=== PATIENT | male | born 1955 | race Caucasian/White ===

== ENCOUNTER 2019-06-01 10:06 | Outpatient (CLI) | payer OTHER, SELFPAY ==
--- NOTE | ~2019-06-01 | XR_ITS ---
EXAMINATION:XR cervical spine 4-5V DATE: 06/01/2019 10:50 INDICATION: Neck pain TECHNIQUE: AP, lateral, bilateral oblique, lateral swimmers and odontoid views of the cervical spine are provided. COMPARISON: None FINDINGS: Alignment is normal. The odontoid is intact. No fracture is identified. The vertebral body heights are normal. There is moderate loss of intervertebral disc space height from C3-4 through C7-T 1. Small degenerative osteophytes project from the anterior endplates of multiple vertebral bodies. T here is moderate to severe multilevel facet and uncovertebral joint osteoarthritis. Mild neural dianna inal stenosis is noted in the lower cervical spine. Prevertebral soft tissues are normal. IMPRESSION: 1. Moderate cervical spondylosis without acute findings. Reviewed, dictated and finalized at location A. E MILL HAND
--- NOTE | ~2019-06-01 | XR_ITS ---
EXAMINATION: XR thoracic spine 3V DATE: 06/01/2019 10:50 INDICATION: Dorsalis TECHNIQUE: AP, lateral and lateral swimmer's views of the thoracic spine were obtained. COMPARISON: None. FINDINGS: There is no fracture. Mild loss of intervertebral disc space height is seen at multiple lev els throughout the thoracic spine. The vertebral body heights and alignment are normal. Small degener ative osteophytes project from the anterior endplates of multiple vertebral bodies. IMPRESSION: 1. Moderate thoracic spondylosis without acute findings. Reviewed, dictated and finalized at location A. HOUSE LABORER
--- NOTE | ~2019-06-01 | XR_ITS ---
EXAMINATION: XR lumbar spine 2-3V DATE: 06/01/2019 10:50 INDICATION: Dorsalgia, unspecified TECHNIQUE: Anteroposterior and lateral views of the lumbar spine, and cone-down lateral view of the l umbosacral junction were obtained. COMPARISON: None. FINDINGS: There is no fracture. There is severe loss of intervertebral disc space height at L1-2. The re are 4 mm of retrolisthesis of L5 on S1. Small degenerative osteophytes project from the anterior e ndplates of multiple vertebral bodies. The bowel gas pattern is normal. There is moderate multilevel facet osteoarthritis. IMPRESSION: 1. Lumbar spondylosis, worst at L1-2. Reviewed, dictated and finalized at location A. ICER
== END 2019-06-01 10:07 | disposition home or self-care (01) ==
LOC: CHSLAB 10:09 → CHSIMG 10:29
PROVIDERS: PCP Nurse Practitioner Family; Visit Provider Nurse Practitioner Family
DX: M54.9 Dorsalgia, unspecified (principal); M54.12 Radiculopathy, cervical region
CPT/HCPCS: 72050; 72072; 72100

== ENCOUNTER 2019-12-05 16:53 | Emergency (ER) | payer OTHER, SELFPAY ==
--- NOTE | ~2019-12-05 | XR_ITS ---
XR hip RT 2V w AP pelvis DATE: 12/05/2019 17:46 INDICATION: Right hip injury. Foreshortening and deformity. TECHNIQUE: AP pelvis. AP, lateral and crosstable lateral views of right hip COMPARISON: 12/05/2019 right femur FINDINGS: No pelvic fracture. The pubic symphysis and sacroiliac joints are intact. There is an intertrochanteric fracture of the right femur extending into the proximal shaft, with the re is angulation. IMPRESSION: Right intertrochanteric hip fracture Reviewed, dictated and finalized at location A.
--- NOTE | ~2019-12-05 | XR_ITS ---
XR femur RT min 2V DATE: 12/05/2019 17:47 INDICATION: Foreshortening and deformity right femur; hand injury TECHNIQUE: AP and lateral views COMPARISON: None FINDINGS: There is a trochanteric fracture of the right hip extending into the proximal shaft. There is varus angulation. IMPRESSION: Right intertrochanteric hip fracture, extending into proximal femoral shaft Reviewed, dictated and finalized at location A. IMPRESSION: Right intertrochanteric hip fracture, extending into proximal femor al shaft
[2019-12-05 16:53] VITALS: BP 91/66; PULSE 70; RESP 20; TEMP 35.9; O2SAT 98
[2019-12-05] MEDS: SODIUM CHLORIDE 0.9% IV 1,000 ML 999 ML IV CONT (16:53)
[2019-12-05 17:56] LABS: Hematocrit 37.1 % (40.0-54.0); Hemoglobin 12.5 g/dL (14.0-18.0); Mean Corpuscular HGB Conc 33.7 g/dL (32.0-36.0); Mean Corpuscular Hemoglobin 30.8 pg (27.0-31.0); Mean Corpuscular Volume 91.4 fL (78.0-102.0); Mean Platelet Volume 8.6 fl (8.7-11.0); Platelet Count Result 244 K/mm3 (150-420); Red Blood Count 4.06 M/mm3 (4.70-6.10); Red Cell Distribution Width 12.2 % (11.6-14.4); White Blood Count 12.8 K/mm3 (4.8-10.8)
[2019-12-05] MEDS: MORPHINE SULFATE 4 MG/ML INJ IV PUSH (18:05)
--- NOTE | 2019-12-05 18:07 | PC.NURSE ---
call to [facility] for transfer
[2019-12-05 18:10] LABS: Partial Thromboplastin Time 27.9 SEC (22.3-31.6); Prothrombin Time 10.6 Seconds (9.64-11.0)
[2019-12-05 18:11] LABS: Alanine Aminotransferase 13 U/L (16-63); Albumin Level 3.3 g/dL (3.4-5.0); Alkaline Phosphatase 74 U/L (46-116); Anion Gap 8 mmol/L (8-16); Aspartate Amino Transferase 18 U/L (15-37); Bilirubin,Total 0.5 mg/dL (0.00-1.00); Blood Urea Nitrogen 8 mg/dL (7-18); Carbon Dioxide 26 mmol/L (21-32); Chloride 97 mmol/L (98-108); Estimated CRCL calculation 69 ml/min; Estimated Glomerular Filt Rate > 60; Glucose 115 mg/dL (70-99); Osmolality Calculated 271 mOsm/kg (285-295); Sodium 131 mmol/L (136-145); Total Protein 6.3 g/dL (6.4-8.2)
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
[2019-12-05 18:32] VITALS: BP 122/80; PULSE 65; RESP 20; TEMP 37.1; O2SAT 99
--- NOTE | 2019-12-05 18:40 | PC.NURSE ---
[facility] called for transfer. awaiting arrival.
[2019-12-05] MEDS: HYDROmorphone HCL 2 MG/ML VIAL IV PUSH (19:10)
--- NOTE | 2019-12-05 19:16 | PC.NURSE ---
report to ems staff from laquita simpson loaded to ems cot. tolerated well, pedal pulse marked for location. remains present and strong before and after moving to cot.
== END 2019-12-05 19:14 | disposition short-term general hospital (02) ==
PROVIDERS: Emergency Provider Emergency Medicine
DX: S72.91XA Unspecified fracture of right femur, initial encounter for closed fracture (principal); V19.9XXA Pedal cyclist (driver) (passenger) injured in unspecified traffic accident, initial encounter
CPT/HCPCS: 36415; 73502; 73552; 80053; 85027; 85610; 85730; 86850; 86900; 86901; 96361; 96374; 96375; 99285; J1170; J2270; J7030

== ENCOUNTER 2020-01-12 13:00 | Outpatient (RCR) | payer OTHER, SELFPAY ==
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
--- NOTE | 2020-03-01 16:08 | PTOPEVAL ---
Thank you for referring Bryon Ibarra to [facility].? The patient is scheduled to be seen for therapy? ____x/week for ___ weeks. Please review, sign, date and return this plan of care VANDANA. I agree with and certify that the following plan of care is medically necessary. Referring Physician Date Admitting Provider: Attending Provider: Philip Baeza, Referring Provider: *PT Outpatient Evaluation Start: 01/12/20 13:05 Freq: Status: Active Protocol: Document 03/01/20 15:00 [facility] (Rec: 03/01/20 16:07 [facility] [id number]) Therapy Assessment Status Assessment Status Assessment Status Re-evaluation Outpatient Past Medical History Musculoskeletal History Hx Back Injury Yes Hx Back Pain Yes Hx Orthopedic Surgery Yes: carpal tunnel right HEENT History Hx Tonsillectomy Yes Evaluation Information Problem Diagnosis R femur fracture Subjective Information patient reports he feels ' Query Text:As Reported By Patient/ better but reports he is Family still weak. he reports his back is more pain ful the the hip, but reports his hip is what affects his walking and activity performance. he reports he would like to continue therapy. he reports he is worried he will not be able to get back to walking without an AD. Pain Assessment Timing of Pain Assessment Timing of Pain Assessment Assessment Pain Scale Pain Scale Used Numeric (1 - 10) Self Report Pain Assessment Lower Back Reported Pain Level 8 Right Leg(s) Reported Pain Level 6 Pain Score Pain Score 8,6: Self Report Interventions Used Interventions Used By Clinicians Activity or ADL's,Education, Exercise Lower Extremity Range of Motion Hip Range of Motion Right Hip Flexion Range of Motion - Active 120 Hip Flexion Range of Motion - Passive 120 Hip Abduction Range of Motion - Active 30 Hip Medial Rotation - Active 30 Hip Lateral Rotation - Active 45 Cervical and Lumbar Muscle Testing Lumbar Strength Upper Abdominal Strength 3-Fair- Lower Abdominal Strength 2 Poor Lower Extremity Muscle Strength Testing Hip Strength Right Hip Flexion Strength 3- Fair - Hip Extension Strength 3- Fair - Hip Abduction Strength 3- Fair - Left Hip Flexion Strength 4 Good Hip Extension Strength 4- Good - Hip Abduction Strength 4- Good - Knee Strength Right Knee Flexion Strength
--- NOTE | 2020-03-10 15:51 | PCPTNOTE ---
patient called and cancelled appt today due to daughter testing positive for covid. ROSEMARY
== END 2020-04-27 17:04 | disposition home or self-care (01) ==
LOC: CHSPT 13:00
PROVIDERS: Visit Provider Orthopaedic Surgery Orthopaedic Trauma
DX: S72.21XA Displaced subtrochanteric fracture of right femur, initial encounter for closed fracture (principal)
CPT/HCPCS: 97014; 97110; 97116; 97161; 97530; G0283

== ENCOUNTER 2020-01-20 07:36 | Outpatient (CLI) | payer OTHER, SELFPAY | END 2020-01-20 07:37 | disposition home or self-care (01) | LOC: CHSIMG 07:38 | PROVIDERS: PCP Nurse Practitioner Family; Visit Provider Nurse Practitioner Family | DX: Z53.8 Procedure and treatment not carried out for other reasons (principal) | CPT/HCPCS: 99199 ==

== ENCOUNTER 2020-01-27 10:24 | Outpatient (CLI) | payer OTHER, SELFPAY ==
--- NOTE | ~2020-01-27 | MR_ITS ---
EXAMINATION: MR lumbar spine wo con EXAM DATE: 01/27/2020 11:54 INDICATION: Mid and low back pain. Spondylosis. TECHNIQUE: Multi-sequential, multiplanar MR images of the lumbar spine were obtained without contrast . Sagittal T1, T2, T2 fat saturation images. Axial T2 weighted images. There is no prior study for comparison. FINDINGS: There is moderate to severe disc disease at L1-2 with 3 mm retrolisthesis. Mild disc diseas e at the other lumbar levels. The vertebral bodies are otherwise aligned. The conus medullaris term inates at the L1 level and has normal signal intensity and morphology. There are no suspicious marro w signal abnormalities. Paraspinal soft tissue is unremarkable. Level by level evaluation: T12-L1: Disc does not extend beyond the endplate margin. Facet arthropathy: None. Neural foraminal stenosis: No stenosis. Central canal stenosis: No stenosis. L1-L2: There is a moderate diffuse disc bulge. Facet arthropathy: Mild. Neural foraminal stenosis: Moderate bilateral. Central canal stenosis: Mild to moderate. L2-L3: There is a mild diffuse disc bulge. Facet arthropathy: Mild. Neural foraminal stenosis: Mild left. Central canal stenosis: Mild. L3-L4: There is a mild diffuse disc bulge. Facet arthropathy: Mild. Neural foraminal stenosis: Mild bilateral. Central canal stenosis: Mild. L4-L5: There is a mild diffuse disc bulge. Facet arthropathy: Mild to moderate. Neural foraminal stenosis: Mild to moderate left, mild right. Central canal stenosis: Mild. L5-S1: There is a mild diffuse disc bulge. Facet arthropathy: Mild. Neural foraminal stenosis: Mild to moderate bilateral. Central canal stenosis: Mild. IMPRESSION: 1. L1-2 moderate to severe disc disease, moderate bilateral neural foraminal stenosis. 2. Lesser spondylosis at other levels. Reviewed, dictated and finalized at location B. IMPRESSION: 1. L1-2 moderate to severe disc disease, moderate bilateral neural foraminal s tenosis. 2. Lesser spondylosis at other levels.
--- NOTE | ~2020-01-27 | MR_ITS ---
EXAMINATION: MR thoracic spine wo con EXAM DATE: 01/27/2020 11:54 INDICATION: Mid back pain. TECHNIQUE: Multi-sequential, multiplanar MR images of the thoracic spine were obtained without contra st. Sagittal T1, T2, T2 fat saturation, axial T2 weighted images reviewed. There is no prior study for comparison. FINDINGS: The spinal cord signal intensity and intrinsic morphology is normal. The vertebral bodies a re aligned in the AP dimension. Vertebral body and disc heights are well-maintained. Thoracic central canal, neural foramen widely patent. Paraspinal soft tissue is unremarkable. Overall mild thoracic f acet arthropathy. IMPRESSION: Mild thoracic facet arthropathy. Reviewed, dictated and finalized at location B.
--- NOTE | ~2020-01-27 | MR_ITS ---
EXAMINATION: MR cervical spine wo con EXAM DATE: 01/27/2020 11:54 INDICATION: Cervical spondylosis. Neck pain, hand numbness. TECHNIQUE: Multi-sequential, multiplanar MR images of the cervical spine were obtained without contra st. Axial T2, axial T2 MERGE sequence. Sagittal T1, T2, T2 fat saturation images also obtained. Th ere is no prior study for comparison. FINDINGS: Study is limited due to patient motion. There is congenitally narrow cervical spinal canal . Moderate to severe loss of the disc height at C5-6, moderate at C3-4, C4-5 and C6-7. The vertebral bodies are aligned in the AP dimension. The spinal cord signal intensity and intrinsic morphology is normal. Cervicomedullary junction is normal in appearance. There are no suspicious marrow signal abno rmalities. Paraspinal soft tissue is unremarkable. Level by level evaluation: C2-C3: Disc does not extend beyond the endplate margin. Uncovertebral joint arthropathy: None. Facet joint arthropathy: Mild to moderate right, mild left. Neural foraminal stenosis: No stenosis. Central canal stenosis: No stenosis. C3-C4: There is a mild diffuse disc bulge. Uncovertebral joint arthropathy: Mild to moderate bilateral. Facet joint arthropathy: Mild bilateral. Neural foraminal stenosis: Moderate right, mild to moderate left. Central canal stenosis: Mild. C4-C5: There is a mild to moderate diffuse disc bulge. Uncovertebral joint arthropathy: Moderate bilateral. Facet joint arthropathy: Mild to moderate bilateral. Neural foraminal stenosis: Severe bilateral. Central canal stenosis: Moderate . Central canal measures 5 mm in mid sagittal AP diameter. Cord is being flattened but no edema, no acute compression. C5-C6: There is a mild diffuse disc bulge. Uncovertebral joint arthropathy: Severe left, moderate to severe right. Facet joint arthropathy: Mild to moderate bilateral. Neural foraminal stenosis: Severe left, moderate to severe right. Central canal stenosis: Mild to moderate . Central canal measures 6-7 mm in mid sagittal AP diameter . C6-C7: There is a mild diffuse disc bulge. Uncovertebral joint arthropathy: Severe left, moderate right. Facet joint arthropathy: Moderate left, mild right. Neural foraminal stenosis: Severe left, mild to moderate right. Central canal stenosis: Mild. C7-T1: There is a minimal diffuse disc bulge. Uncovertebral joint arthropathy: Mild bilateral. Facet joint arthropathy: Moderate left, mild right. Neural foraminal stenosis: Mild to moderate left, mild right. Central canal stenosis: No stenosis. IMPRESSION: 1. Advanced cervical spondylosis superimposed on congenitally narrow spinal canal. 2. Chronic cord compression at C4-5 with canal only measuring 5 mm. No cord edema. Reviewed, dictated and finalized at location B. IMPRESSION: 1. Advanced cervical spondylosis superimposed on congenitally narrow spinal ca nal. 2. Chronic cord compression at C4-5 with canal only measuring 5 mm. No cord ed lashanda.
== END 2020-01-27 10:25 | disposition home or self-care (01) ==
LOC: CHSIMG 10:25
PROVIDERS: PCP Nurse Practitioner Family; Visit Provider Nurse Practitioner Family
DX: M47.814 Spondylosis without myelopathy or radiculopathy, thoracic region (principal); M47.812 Spondylosis without myelopathy or radiculopathy, cervical region; M43.10 Spondylolisthesis, site unspecified; M47.816 Spondylosis without myelopathy or radiculopathy, lumbar region; G62.9 Polyneuropathy, unspecified; M54.12 Radiculopathy, cervical region
CPT/HCPCS: 72141; 72146; 72148

== ENCOUNTER 2020-04-12 17:09 | Outpatient (RCR) | payer OTHER, SELFPAY | END 2020-07-11 23:59 | disposition home or self-care (01) | LOC: CHSPT 17:09 | PROVIDERS: Visit Provider Orthopaedic Surgery Orthopaedic Trauma | DX: S72.21XD Displaced subtrochanteric fracture of right femur, subsequent encounter for closed fracture with routine healing (principal) | CPT/HCPCS: 97110; 97530 ==

== ENCOUNTER 2020-06-28 16:55 | Outpatient (CLI) | payer OTHER, SELFPAY ==
--- NOTE | ~2020-06-28 | XR_ITS ---
EXAMINATION: XR chest 2V 06/28/2020 17:43 INDICATION: Smoker. Dyspnea. PROCEDURE: 2 view chest COMPARISON: No prior studies for comparison. FINDINGS: The lungs are clear. The cardiomediastinal silhouette is within normal limits. There are no pleural effusions. There is no pneumothorax suspected. The lungs are hyperinflated which is consistent with, but not diagnostic of chronic obstructive pulmo nary disease. IMPRESSION: 1: NO ACUTE CARDIOPULMONARY DISEASE. Reviewed, dictated and finalized at location A. TRY INSEMINATOR
--- NOTE | 2020-06-28 16:58 | ECG_ITS ---
Measurements Intervals [place] Rate: 67 P: 70 UT: 196 QRS: 84 QRSD: 96 T: 77 QT: 366 QTc: 387 Interpretive Statements SINUS RHYTHM INCOMPLETE RIGHT BUNDLE BRANCH BLOCK PEAKED T WAVES- CONSIDER HYPERKALEMIA OR ISCHEMIA ABNORMAL ECG Electronically Signed On 06-28-2020 20:16:19 SHEET METAL PATTERN CUTTER by Faisal Tobar D.O.
[2020-06-28 17:16] LABS: Hematocrit 39.7 % (40.0-54.0); Hemoglobin 13.3 g/dL (14.0-18.0); Mean Corpuscular HGB Conc 33.5 g/dL (32.0-36.0); Mean Corpuscular Hemoglobin 31.1 pg (27.0-31.0); Mean Corpuscular Volume 92.8 fL (78.0-102.0); Mean Platelet Volume 8.6 fl (8.7-11.0); Platelet Count Result 238 K/mm3 (150-420); Red Blood Count 4.28 M/mm3 (4.70-6.10); Red Cell Distribution Width 12.5 % (11.6-14.4)
[2020-06-28 17:19] LABS: Add Urine Microscopic? NO; Appearance Urine Clear (Clear); Bilirubin Urine Negative (Negative); Blood Urine Negative (Negative); Color Urine Yellow (Yellow); Glucose Urine UA Negative (Negative); Ketones Urine Negative (Negative); Leukocyte Esterase Ur Negative (Negative); Nitrate Urine Negative (Negative); Protein Urine Negative (Negative); Specific Grav Ur 1.015 (1.010-1.020)
[2020-06-28 17:30] LABS: Prothrombin Time 10.4 Seconds (9.50-12.10)
[2020-06-28 17:49] LABS: Albumin Level 3.8 g/dL (3.4-5.0); Alkaline Phosphatase 140 U/L (46-116); Anion Gap 7 mmol/L (8-16); Aspartate Amino Transferase 16 U/L (15-37); Bilirubin,Total 0.8 mg/dL (0.00-1.00); Blood Urea Nitrogen 12 mg/dL (7-18); Calcium 8.6 mg/dL (8.5-10.1); Carbon Dioxide 28 mmol/L (21-32); Chloride 97 mmol/L (98-108); Estimated Glomerular Filt Rate > 60; Glucose 102 mg/dL (70-99); Osmolality Calculated 273 mOsm/kg (285-295); Potassium 4.3 mmol/L (3.5-5.1); Sodium 132 mmol/L (136-145); Total Protein 7.4 g/dL (6.4-8.2)
[2020-06-28 17:58] LABS: Alanine Aminotransferase 19 U/L (16-63)
== END 2020-06-28 16:56 | disposition home or self-care (01) ==
LOC: CHSLAB 16:58
PROVIDERS: PCP Family Medicine; Visit Provider Family Medicine
DX: Z01.818 Encounter for other preprocedural examination (principal)
CPT/HCPCS: 36415; 71046; 80053; 81003; 85027; 85610; 87081; 93005

== ENCOUNTER 2020-07-11 07:58 | Outpatient (CLI) | payer OTHER, SELFPAY | END 2020-07-11 07:59 | disposition home or self-care (01) | LOC: CHSIMG 08:00 | PROVIDERS: PCP Family Medicine; Visit Provider Family Medicine | DX: Z53.8 Procedure and treatment not carried out for other reasons (principal) | CPT/HCPCS: 99199; J2785 ==

== ENCOUNTER 2020-07-18 07:59 | Outpatient (CLI) | payer OTHER, SELFPAY ==
--- NOTE | 2020-07-18 09:38 | EST_ITS ---
Patient Info Name: Bryon Ibarra Age: 64 years : 1955 Gender: Male Ht: 73 in Wt: 164 lbs BSA: 1.95 m2 HR: 72 bpm BP: 156 / 83 mmHg Technical Quality: Excellent Exam Date: 07/18/2020 8:55 AM Exam Location: [facility] Patient Status: Outpatient Admit Date: 07/18/2020 Staff Ordering Physician: Earl Kruse DO Attending Provider: Earl Kruse DO Exercise Technologist: Mara Melara, DANITZA Exercise Physician: Karla Cloud CEP Exam Type: CA stress walter w NM Study Info Indications AbnormalEKG - A nuclear stress test was performed. History/Risk Factors Tobacco Use: Current - Every Day If Any Current, Tobacco Type: Cigarettes If Current - Every Day \T\ Cigarettes, Amount: Heavy Tobacco Use (>=10/day) History/Risk Factors Smoker. Summary 1. 1. Negative lexiscan stress test for ischemic ST changes by ECG criteria. 2. 2. Baseline hypertension. 3. 3. Nuclear scan to follow and will be reported separately. Please correlate with it. Protocol: LEXISCAN Stress ECG Details Stage: REST Duration (min): 1 min : 2 sec HR (bpm): 73 SBP (mmHg): 156 DBP (mmHg): 83 Stage: REST Duration (min): 6 min : 0 sec HR (bpm): 75 SBP (mmHg): 156 DBP (mmHg): 83 Stage: STAGE 1 Duration (min): 0 min : 10 sec HR (bpm): 75 SBP (mmHg): 156 DBP (mmHg): 83 Stage: RECOVERY Duration (min): 0 min : 49 sec HR (bpm): 107 SBP (mmHg): 156 DBP (mmHg): 83 Stage: RECOVERY Duration (min): 1 min : 49 sec HR (bpm): 101 SBP (mmHg): 150 DBP (mmHg): 81 Stage: RECOVERY Duration (min): 2 min : 49 sec HR (bpm): 99 SBP (mmHg): 143 DBP (mmHg): 78 Stage: RECOVERY Duration (min): 3 min : 49 sec HR (bpm): 93 SBP (mmHg): 146 DBP (mmHg): 74 Stage: RECOVERY Duration (min): 4 min : 49 sec HR (bpm): 91 SBP (mmHg): 149 DBP (mmHg): 79 Stage: RECOVERY Duration (min): 5 min : 49 sec HR (bpm): 91 SBP (mmHg): 147 DBP (mmHg): 76 Stage: RECOVERY Duration (min): 6 min : 1 sec HR (bpm): 93 SBP (mmHg): 147 DBP (mmHg): 76 Rest HR: 75 bpm Peak HR: 107 bpm Rest Sys BP: 156 mmHg Peak Sys BP: 150 mmHg Max Pred HR: 158 bpm % Max Pred HR: 68 % Target HR: 134 bpm Max RPP: 16,050 bpm*mmHg Termination Reason: Completion of Protocol Cardiac Symptoms: cough Total Time: 0 min : 10 sec Rest Ayala BP: 83 mmHg Peak Ayala BP: 81 mmHg Total Dose: 0.4 mg Resting ECG Sinus rhythm, IRBBB, delayed precordial R/S transition, borderline T wave in anterior leads. Stress ECG No ST changes. Arrhythmias None. Report Signatures
--- NOTE | 2020-07-18 11:29 | WPDCARIOSTRE ---
Nuclear Stress Test INDICATIONS Indications: Abnormal EKG, preop. PROCEDURE Procedure Performed: Myocardial Perf Spect-Multi Procedure: Patient underwent a lexiscan stress test and immediately after lexiscan injection patient was injected with 31.8 mci of cardiolyte. Multiple tomographic images were obtained. These were of good quality. No evidence of perfusion defects during stress imaging. A separate resting scan was performed after patient was injected with 10.2 mci of cardiolyte. Multiple tomographic images were obtained. These were of good quality except for resting inferior wall was suboptimal. No evidence of perfusion defects during rest imaging except inferior wall could not be adequately assessed. CONCLUSION Conclusion: 1. Normal myocardial perfusion imaging demonstrating no areas of defect during stress imaging. 2. No evidence of reversible ischemia. 3. Left ventriculogram demonstrates normal measured ejection fraction of 65%. 4. No wall motion abnormality. 5. TID score is normal at 1.0.
== END 2020-07-18 08:00 | disposition home or self-care (01) ==
LOC: CHSIMG 08:00
PROVIDERS: PCP Family Medicine; Visit Provider Family Medicine
DX: R94.31 Abnormal electrocardiogram [ECG] [EKG] (principal)
CPT/HCPCS: 78452; 93017; A9502; J2785

== ENCOUNTER 2020-07-23 14:05 | Outpatient (CLI) | payer OTHER, SELFPAY ==
[2020-07-23 14:55] LABS: SARS-CoV-2 RNA PCR Negative (Negative)
== END 2020-07-23 14:06 | disposition home or self-care (01) ==
LOC: CHSLAB 14:07
PROVIDERS: PCP Family Medicine; Visit Provider Family Medicine
DX: Z01.818 Encounter for other preprocedural examination (principal); Z20.822 Contact with and (suspected) exposure to COVID-19
CPT/HCPCS: C9803; U0003; U0005

== ENCOUNTER 2020-09-01 07:56 | Outpatient (RCR) | payer OTHER, SELFPAY ==
--- NOTE | 2020-09-01 11:22 | PTOPEVAL ---
Thank you for referring Bryon Ibarra to [facility].? The patient is scheduled to be seen for therapy? ____x/week for ___ weeks. Please review, sign, date and return this plan of care VANDANA. I agree with and certify that the following plan of care is medically necessary. Referring Physician Date Admitting Provider: Attending Provider: Earl Kruse DO Referring Provider: *PT Outpatient Evaluation Start: 09/01/20 07:59 Freq: Status: Active Protocol: Document 09/01/20 08:00 [facility] (Rec: 09/01/20 10:33 [facility] [id number]) Therapy Assessment Status Assessment Status Assessment Status Evaluation Outpatient Past Medical History Musculoskeletal History Hx Back Injury Yes Hx Back Pain Yes Hx Orthopedic Surgery Yes: carpal tunnel right HEENT History Hx Tonsillectomy Yes Evaluation Information Problem Diagnosis cervical spine fusion, lumbar stenosis Onset 08/26/20 Additional Evaluation Detail oswestry = 74% functionally declined. Subjective Information Bryon Ibarra is a pleasant 64 Query Text:As Reported By Patient/ year old man who reports Family increased cervical and lumbar pain. He is s/p cervical C4-6 fusion performed on 07/26/20. He lives at home by himself and has 1 stair to enter his home. He reports taking pain medications including meloxicam and hydrocodone. He also takes medications for nerve pain, but could not remember the name of it. He takes his pain medication every 4-6 hours and has resumed driving, but does not drive when taking hydrocodone. He has had 2 MRIs taken with results of arthritis/ degeneration in the c-spine prior to surgery. He has post surgical precautions to not rotate his C-spine or lift >15 # overhead. however, patient is not in a c collar or neck brace. patient reports he still continues to struggle with balance as he reports falling this year. Prior Level of Function Comments Additional
--- NOTE | 2020-11-15 15:32 | PTOPEVAL ---
Thank you for referring Bryon Ibarra to [facility] The patient is scheduled to be seen for therapy? ____x/week for ___ weeks. Please review, sign, date and return this plan of care VANDANA. I agree with and certify that the following plan of care is medically necessary. Referring Physician Date Admitting Provider: Attending Provider: Earl Kruse DO Referring Provider: *PT Outpatient Evaluation Start: 09/01/20 07:59 Freq: Status: Active Protocol: Document 11/15/20 14:26 [facility] (Rec: 11/15/20 15:30 [facility] [id number]) Therapy Assessment Status Assessment Status Assessment Status Discharge Outpatient Past Medical History Musculoskeletal History Hx Back Injury Yes Hx Back Pain Yes Hx Orthopedic Surgery Yes: carpal tunnel right HEENT History Hx Tonsillectomy Yes Evaluation Information Problem Diagnosis cervical spine fusion, lumbar stenosis Onset 08/26/20 Additional Evaluation Detail ndi = 78% functionally declined oswestry = 66% functionally declined Subjective Information patient reports he has felt Query Text:As Reported By Patient/ better. he reports lately he Family feels he is not progressing. he reports he is going for walks and exercising at home. he reports he is not scheduled to return to his neck surgeon for any follow ups. Pain Assessment Timing of Pain Assessment Timing of Pain Assessment Assessment Pain Scale Pain Scale Used Numeric (1 - 10) Self Report Pain Assessment Spine, Lumbar Reported Pain Level 6 Neck Reported Pain Level 7 Pain Score Pain Score 6,7: Self Report Interventions Used Interventions Used By Clinicians Electrical Stimulation, Exercise,Heat Cervical and Lumbar ROM Cervical ROM Cervical Flexion (0-60) 45 Query Text:Active in Degrees Cervical Extension (0-70) 20 Query Text:Active in Degrees Lumbar ROM Lumbar Flexion Active Knee Query Text:Hands to: Lumbar Extension (0-40) 5 Query Text:Active in Degrees Lumbar Lateral Flexion Right (0-40) 10 Query Text:Active in Degrees Lumbar Lateral Flexion Left (0-40) 10 Query Text:Active in Degrees Lower Extremity Muscle Strength Testing Hip Strength Right Hip Flexion Strength 3- Fair - Left Hip Flexion Strength 3+ Fair + Knee Strength Right Kne
== END 2020-11-15 15:39 | disposition home or self-care (01) ==
LOC: CHSPT 07:56
PROVIDERS: PCP Family Medicine; Visit Provider Family Medicine
DX: G95.9 Disease of spinal cord, unspecified (principal)
CPT/HCPCS: 97014; 97110; 97140; 97162; 97530; G0283

== ENCOUNTER 2020-10-28 12:32 | Outpatient (CLI) | payer OTHER, SELFPAY ==
--- NOTE | ~2020-10-28 | XR_ITS ---
XR lumbar spine 2-3V DATE: 10/28/2020 12:58 INDICATION: Fall. Back pain. TECHNIQUE: AP, lateral, coned lateral lumbosacral views COMPARISON: 01/27/2020 MRI lumbar spine 06/01/2019 lumbar spine FINDINGS: Diffuse osteopenia. There is mild thoracolumbar levoscoliosis. There is severe degenerative disc disease including disc space narrowing, prominent spurring and [place] at L1-2. No fracture or bone destruction or spondylolisthesis. The lumbar and included T12 pedicles are intact . The sacroiliac joints are normal. Compression screw is noted in the proximal right femur. IMPRESSION: Levoscoliosis Diffuse osteopenia Severe degenerative disease at L1-2 Reviewed, dictated and finalized at location A.
--- NOTE | ~2020-10-28 | CT_ITS ---
EXAMINATION:CT lung screening DATE: 10/28/2020 12:51 INDICATION: Personal history of tobacco dependence. Current smoker with 25 pack year history. TECHNIQUE: Computed tomography (CT) of the chest was performed without intravenous contrast. Automate d exposure control and iterative reconstruction technique were employed. The dose-length product (DLP ) was 69.39 mGy-cm. COMPARISON: None. FINDINGS: There is mild emphysema. There is mild bronchiectasis in right upper lobe. There is mild mu cous plugging in the upper lobes. There is a 2 mm nodule in right upper lobe. Calcified bilateral michelle g nodules are consistent with old granulomatous disease. No pleural effusion. The heart size is myron l. There are coronary artery calcifications. No pericardial effusion. There is severe lumbar spondylo sis. IMPRESSION: 1. Lung-RADS category 2: Benign appearance or behavior. Continue annual screening with noncontrast lo w-dose chest CT in 12 months. Reviewed, dictated and finalized at location A. IMPRESSION: 1. Lung-RADS category 2: Benign appearance or behavior. Continue annual screeni ng with noncontrast low-dose chest CT in 12 months.
--- NOTE | ~2020-10-28 | XR_ITS ---
XR_CERV2-3V_CR DATE: 10/28/2020 12:58 INDICATION: Fall. Right neck pain TECHNIQUE: AP, open-mouth, lateral views COMPARISON: June 09, 2019 cervical spine FINDINGS: There is interval anterior and interbody spinal fusion at C4-C6 since June 09, 2019. C1 and C2 are normally aligned and the odontoid process is intact. No fracture or dislocation or lock ed facet or prevertebral soft tissue swelling. There is mild degenerative disc disease at C2-3, moderate degenerative disc disease at C3-4 and moder ately severe degenerative disc disease at C6-7. IMPRESSION: Status post anterior and interbody spinal fusion at C4-6 since June 01, 2019 Multilevel degenerative disc disease Reviewed, dictated and finalized at Location [facility]. Reviewed, dictated and finalized at location A. IMPRESSION: Status post anterior and interbody spinal fusion at C4-6 since 2019 Multilevel degenerative disc disease
[2020-10-28 12:43] LABS: Hematocrit 41.8 % (40.0-54.0); Hemoglobin 14.5 g/dL (14.0-18.0); Mean Corpuscular HGB Conc 34.7 g/dL (32.0-36.0); Mean Corpuscular Hemoglobin 31.6 pg (27.0-31.0); Mean Corpuscular Volume 91.1 fL (78.0-102.0); Mean Platelet Volume 8.3 fl (8.7-11.0); Platelet Count Result 290 K/mm3 (150-420); Red Blood Count 4.59 M/mm3 (4.70-6.10); Red Cell Distribution Width 12.1 % (11.6-14.4); White Blood Count 6.8 K/mm3 (4.8-10.8)
[2020-10-28 14:01] LABS: Alanine Aminotransferase 19 U/L (16-63); Alkaline Phosphatase 109 U/L (46-116); Anion Gap 12 mmol/L (8-16); Aspartate Amino Transferase 19 U/L (15-37); Bilirubin,Total 1.4 mg/dL (0.00-1.00); Blood Urea Nitrogen 14 mg/dL (7-18); Carbon Dioxide 27 mmol/L (21-32); Chloride 95 mmol/L (98-108); Estimated Glomerular Filt Rate > 60; Glucose 100 mg/dL (70-99); Osmolality Calculated 278 mOsm/kg (285-295); Potassium 4.2 mmol/L (3.5-5.1); Sodium 134 mmol/L (136-145); Total Protein 6.9 g/dL (6.4-8.2)
[2020-10-28 14:29] LABS: Thyroid Stimulating Hormone Reflex 2.69 u/IU/mL (0.36-3.74)
[2020-11-01 10:40] LABS: Prealbumin 30 mg/dL (21-43)
== END 2020-10-28 12:33 | disposition home or self-care (01) ==
LOC: CHSIMG 12:35
PROVIDERS: PCP Family Medicine; Visit Provider Family Medicine
DX: Z12.2 Encounter for screening for malignant neoplasm of respiratory organs (principal); Z87.891 Personal history of nicotine dependence; R63.4 Abnormal weight loss; E11.9 Type 2 diabetes mellitus without complications
CPT/HCPCS: 36415; 71271; 72040; 72100; 80053; 84134; 84443; 85027

== ENCOUNTER 2021-08-20 12:42 | Emergency (ER) | payer OTHER, SELFPAY ==
--- NOTE | ~2021-08-20 | XR_ITS ---
XR shoulder LT min 2V DATE: 08/20/2021 13:23 INDICATION: Fall. Left shoulder injury. TECHNIQUE: 3 views COMPARISON: None FINDINGS: There is a comminuted fracture at the surgical neck and humeral head and greater tuberosity of the humerus. There is up to 12 mm medial displacement of the humeral shaft. No dislocation is evident. Diffuse osteopenia. Status post anterior and interbody lower cervical spine surgical fusion. IMPRESSION: Comminuted fracture of humeral head, greater tuberosity and surgical neck Reviewed, dictated and finalized at location A. IMPRESSION: Comminuted fracture of humeral head, greater tuberosity and surgica l neck
[2021-08-20 12:56] VITALS: BP 152/85; PULSE 92; RESP 20; TEMP 36.6; O2SAT 99
[2021-08-20] MEDS: MORPHINE SULFATE (*CRX) 4 MG/ML INJ IM (14:02)
--- NOTE | 2021-08-20 14:14 | ED.UPPEXIN ---
HPI - Extremity Injury (Upper) General Chief Complaint: Extremity Injury, Upper Stated Complaint: L arm pain after fall last night Time Seen by Provider: 08/20/21 12:45 Source: patient and RN notes reviewed Mode of arrival: ambulatory Limitations: no limitations History of Present Illness complaint: injury to: left, shoulder and arm Onset (ago): day(s) (1) Place: home Severity: moderate Severity scale (1-10): 8 Relieving factors: immobilization Exacerbating factors: movement of extremity Context: fall Associated symptoms: heard/felt popping sensation Related Data Home Medications Medication Instructions Recorded Confirmed gabapentin 100 mg capsule 100 mg PO TID 08/03/20 mupirocin 2 % topical ointment 1 applic TOPICAL BID 08/03/20 Allergies Allergy/AdvReac Type Severity Reaction Status Date / Time No Known Allergies Allergy Verified 08/22/21 09:41 Review of Systems Review of Systems: All systems reviewed & are unremarkable except as noted in HPI and below PMFSH Past Medical History Medical History Fracture, humerus Nicotine dependence Spondylosis of lumbar spine Thoracic spondylosis Surgical History Surgical History History of carpal tunnel surgery of right wrist 2009 Family History Family History Mother No problems noted. Social History Social History Smoking packs per day: 1 Smoking cigarettes per day: 20.0 Years smoked: 25 Smoking pack-years: 25.00 Tobacco type: cigarettes Additional smoking assessment comments: Currently smoking 4 cigs a day. Exam Const: General: no acute distress and alert Orientation/consciousness: patient oriented x3 Limitations: no limitations HENMT: Head: normal to inspection Ears: external ears normal, TM's normal bilaterally and EAC's normal General nose exam: Normal external nose present and Normal nares present Face and sinus: normal facial exam and sinuses nontender Mouth: Yes lip normal and Yes moist mucous membranes Eyes: Conjunctivae: conjunctivae normal Pupils: Equal, round and reactive pupils present EOM: EOMs intact bilaterally Neck: Neck: normal visual inspection, no lymphadenopathy and no meningeal signs Chest: Chest palpation & inspection: normal inspection of the chest Resp: Effort & Inspection: normal respiratory effort Auscultation: clear to auscultation bilaterally Cardio: Rate: regular rate Rhythm: regular rhythm GI: GI Palp: Yes Soft to palpation and No Tenderness to palpation present (GI) Auscultation: normal bowel sounds : General: Yes bladder normal to palpation and Yes no CVA tenderness Male General Exam: Yes normal external exam Back/Spine/Pelvis: Back: no CVA tenderness Skin: General skin exam: normal color Rashes: no rashes Neuro: General: patient oriented x3, moves all extremities, no meningeal signs, no focal motor deficits and CN's II-XI intact bilaterally Extrem: General: no pedal edema Other: left upper humerus was very tender with no acute redness or swelling. minimal deformity. no acute neurovascular deficit. Psych: Appearance: grossly normal and well kempt Mental Status: mental status grossly normal Affect: Anxious affect present Thought content: Yes Normal thought content present Course Course Emergency Course: Pt was stable in the ED, less painful. Reevaluation(s) Date: 08/20/21 Time: 13:38 Vital Signs Vital signs: Vital Signs Temperature 36.6 C 08/20/21 12:56 Pulse Rate 92 08/20/21 12:56 Respiratory Rate 20 08/20/21 12:56 Blood Pressure 152/85 H 08/20/21 12:56 Pulse Oximetry 99 08/20/21 12:56 Temperature 36.7 C 08/20/21 14:43 Pulse Rate 77 08/20/21 14:43 Respiratory Rate 20 08/20/21 14:43 Blood Pressure 154/90 H
[2021-08-20] MEDS: ACETAMINOPHEN 325 MG TABLET 650 MG PO (14:35)
[2021-08-20 14:43] VITALS: BP 154/90; PULSE 77; RESP 20; TEMP 36.7; O2SAT 96
== END 2021-08-20 14:45 | disposition home or self-care (01) ==
PROVIDERS: Emergency Provider Emergency Medicine; PCP Family Medicine
DX: S42.212A Unspecified displaced fracture of surgical neck of left humerus, initial encounter for closed fracture (principal); W19.XXXA Unspecified fall, initial encounter
CPT/HCPCS: 73030; 96372; 99284; A4565; A9270; J2270

== ENCOUNTER 2021-09-11 10:13 | Outpatient (CLI) | payer OTHER, SELFPAY ==
--- NOTE | ~2021-09-11 | XR_ITS ---
EXAMINATION: XR shoulder LT min 2V DATE: 09/11/2021 10:51 INDICATION: Proximal left humerus fracture. Follow-up. TECHNIQUE: 5 views of left shoulder were obtained. COMPARISON: Left shoulder radiographs 08/25/2021 FINDINGS: There is a comminuted fracture of proximal left humerus involving the surgical neck and gre ater tuberosity. At the surgical neck, the main distal fracture fragment demonstrates one half shaft width anterior displacement, 5 mm medial displacement, and impaction. There is early new bone formati on. There is mild osteoarthritis of glenohumeral joint and moderate osteoarthritis of acromioclavicul ar joint. There are changes of anterior fusion procedure in cervical spine. IMPRESSION: 1. Healing comminuted, two-part fracture of proximal left humerus. 2. Polyarticular osteoarthritis. Reviewed, dictated and finalized at location A.
== END 2021-09-11 10:14 | disposition home or self-care (01) ==
LOC: CHSIMG 10:16
PROVIDERS: PCP Family Medicine; Visit Provider Orthopaedic Surgery
DX: M25.512 Pain in left shoulder (principal); S42.202D Unspecified fracture of upper end of left humerus, subsequent encounter for fracture with routine healing
CPT/HCPCS: 73030

== ENCOUNTER 2021-10-09 10:14 | Outpatient (CLI) | payer OTHER, SELFPAY ==
--- NOTE | ~2021-10-09 | XR_ITS ---
XR shoulder LT min 2V DATE: 10/09/2021 10:34 INDICATION: Left shoulder pain following humeral fracture TECHNIQUE: 3 views COMPARISON: 09/11/2021 left shoulder FINDINGS: Anterosuperior lead displaced left humeral neck fracture and fracture of greater tuberosity again noted, with increased callus formation consistent with healing. Degenerative spurring at the lateral clavicular joint. Mild osteoarthritis at the left glenohumeral j oint. Normal alignment at the acromioclavicular and glenohumeral joints. Status post anterior lower cervical spine surgical fusion. Osteopenia. IMPRESSION: Healing comminuted proximal humeral fracture with little interval change in position or a lignment since 09/11/2021 Reviewed, dictated and finalized at location A. IMPRESSION: Healing comminuted proximal humeral fracture with little interval c hange in position or alignment since 09/11/2021
== END 2021-10-09 10:15 | disposition home or self-care (01) ==
LOC: CHSIMG 10:16
PROVIDERS: PCP Family Medicine; Visit Provider Orthopaedic Surgery
DX: M25.512 Pain in left shoulder (principal)
CPT/HCPCS: 73030